=== PATIENT | male | born 1990 | race Caucasian/White ===

== ENCOUNTER 2016-08-30 02:05 | Emergency (ER) | payer SELFPAY | END 2016-08-30 04:18 | disposition home or self-care (01) | LOC: ER 02:05 | DX: K64.4 Residual hemorrhoidal skin tags (principal); F90.9 Attention-deficit hyperactivity disorder, unspecified type; F17.210 Nicotine dependence, cigarettes, uncomplicated; Z88.0 Allergy status to penicillin ==

== ENCOUNTER 2016-09-07 20:39 | Emergency (ER) | payer OTHER | END 2016-09-07 23:27 | disposition home or self-care (01) | LOC: ER 20:39 | DX: A08.4 Viral intestinal infection, unspecified (principal); F17.210 Nicotine dependence, cigarettes, uncomplicated; Z88.0 Allergy status to penicillin; Z88.8 Allergy status to other drugs, medicaments and biological substances | CPT/HCPCS: 36415; 87502; 96361; 96374; J2765 ==